=== PATIENT | female | born 1985 | race Caucasian/White ===

== ENCOUNTER 2021-09-13 07:59 | Emergency (ER) | payer OTHER ==
[~2021-09-13] VITALS: Ht 172.7 cm; Wt 61.7 kg
[2021-09-13] MEDS ORDERED: ADDERALL 10 MG10 MG (08:20)
[2021-09-13] MEDS ORDERED: GRALISE600 MG (08:20)
== END 2021-09-13 10:54 | disposition home or self-care (01) ==
LOC: ER 07:59
DX: T78.1XXA Other adverse food reactions, not elsewhere classified, initial encounter (principal)